=== PATIENT | male | born 1995 | race Caucasian/White ===

== ENCOUNTER → 2018-08-17 | Outpatient (CLI) | payer OTHER ==
--- NOTE | 2018-08-17 09:38 | Diagnostic Imaging Report ---
INDICATION: Right shoulder injury during baseball game. FINDINGS: Three views of the right shoulder demonstrates normal ossification. No fracture or dislocation is present. IMPRESSION: Normal right shoulder. Dictated by: Dictated on workstation # [id number]
== END ==
LOC: RAD FS 08:55
PROVIDERS: ATTEND Nurse Practitioner
DX: S49.91XA Unspecified injury of right shoulder and upper arm, initial encounter (principal); Y93.64 Activity, baseball
CPT/HCPCS: 73030